=== PATIENT | male | born 1955 | race Caucasian/White ===

== ENCOUNTER → 2020-07-16 | Outpatient (CLI) | payer MEDICARE, OTHER ==
[~2020-07-16] MED LIST: SIMV20TA19 PO
[2020-07-16 11:01] LABS: BASOPHILS % (AUTO) 0 % (0-1); EOSINOPHILS % (AUTO) 1 % (1-7); LYMPHOCYTES % (AUTO) 29 % (22-44); MEAN CORPUSCULAR HEMOGLOBIN 30.4 pg (27.5-34.5); MEAN CORPUSCULAR HGB CONC 33.4 g/dL (33.2-36.2); MEAN PLATELET VOLUME 8.3 fL (7.4-10.4); MONOCYTES % (AUTO) 8 % (2-9); NEUTROPHILS % (AUTO) 62 % (42-75); PLATELET COUNT 169 x10^3/uL (130-400); RED BLOOD COUNT 4.96 x10^6/uL (4.38-5.82); RED CELL DISTRIBUTION WIDTH 12.8 % (9.4-14.8)
[2020-07-16 11:04] LABS: ANION GAP 5 mmol/L (5-15); CALCIUM 9.1 mg/dL (8.5-10.1); CHLORIDE 109 mmol/L (98-107)
[2020-07-16 11:07] LABS: MD NO
== END | disposition home or self-care (01) ==
LOC: STAR 09:09
PROVIDERS: ATTEND Orthopaedic Surgery
DX: Z01.810 Encounter for preprocedural cardiovascular examination (principal); Z01.818 Encounter for other preprocedural examination; M17.11 Unilateral primary osteoarthritis, right knee; Z20.828 Contact with and (suspected) exposure to other viral communicable diseases
CPT/HCPCS: 36415; 80048; 85025; 87081; 87635; 93005

== ENCOUNTER 2020-07-21 12:04 | Observation (INO) | payer OTHER, MEDICARE ==
[~2020-07-21] VITALS: Ht 180.3 cm; Wt 80.3 kg
[~2020-07-21 12:04] MED LIST changes: +EPINEPHRINE 1 MG/ML, 1ML ONE; +KETOROLAC 60 MG/2 ML ONE; +ROPIvacaine/PF 0.2%, 20 ML ONE; +SODIUM CHLORIDE 0.9% 50 ML ONE; +TRANEXAMIC ACID 100 MG/ML, 10ML ONE
[2020-07-21] MEDS ORDERED: CHLORHEXIDINE 15 ML UDC MM STA (12:15)
[2020-07-21] MEDS ORDERED: CHLORHEXIDINE 15 ML UDC ONE (12:22)
[2020-07-21] MEDS ORDERED: LACTATED RINGERS 1,000 ML IV SCH (12:30)
[2020-07-21] MEDS ORDERED: KETOROLAC 60 MG/2 ML ONE (13:18)
[2020-07-21] MEDS ORDERED: FENTANYL PF 250 MCG/5ML ONE (13:31)
[2020-07-21] MEDS ORDERED: PROPOFOL 50 ML ONE (14:47)
[2020-07-21] MEDS ORDERED: hydrALAzine 20 MG/ML, 1ML IV PRN (15:30)
[2020-07-21] MEDS ORDERED: ONDANSETRON 2MG/ML, 2ML IVPush PRN ×2 (15:30→16:30)
[2020-07-21] MEDS ORDERED: PROMETHAZINE 25 MG/ML, 1ML IVPush PRN (15:30)
[2020-07-21] MEDS ORDERED: FENTANYL PF 100 MCG/2ML IV PRN (15:30)
[2020-07-21] MEDS ORDERED: HALOPERIDOL 5 MG/ML IV PRN (15:30)
[2020-07-21] MEDS ORDERED: MEPERIDINE/PF 25MG/0.5ML IVPush PRN (15:30)
[2020-07-21] MEDS ORDERED: EPHEDRINE 50 MG/ML, 1ML IVPush PRN (15:30)
[2020-07-21] MEDS ORDERED: METHOCARBAMOL 1,000 MG in DEXTROSE 5% 100 ML IV PRN (15:30)
[2020-07-21] MEDS ORDERED: LABETALOL 5MG/ML, 20ML IV PRN (15:30)
[2020-07-21] MEDS ORDERED: LORazepam 2 MG/ML, 1ML IVPush PRN (15:30)
[2020-07-21] MEDS ORDERED: HYDROmorphone 1 MG/ML, 1ML INJ IVPush PRN ×2 (15:30→16:30)
[2020-07-21] MEDS ORDERED: ACETAMINOPHEN 325 MG TABLET PO PRN (15:30)
[2020-07-21] MEDS ORDERED: OXYcodone 5 MG/5 ML ORAL.SOL UDC PO PRN (15:30)
[2020-07-21] MEDS ORDERED: CEFAZOLIN PMX 1GM/50ML 50 ML IVPB SCH (16:30)
[2020-07-21] MEDS ORDERED: PROMETHAZINE 25 MG/ML, 1ML IM PRN (16:30)
[2020-07-21] MEDS ORDERED: PSYLLIUM PACKET PO PRN (16:30)
[2020-07-21] MEDS ORDERED: ALUMINUM/MAG/SIMETHICONE 30 ML UDC PO PRN (16:30)
[2020-07-21] MEDS ORDERED: MAGNESIUM HYDROXIDE 8%, 30ML UDC PO PRN (16:30)
[2020-07-21] MEDS ORDERED: DIPHENHYDRAMINE 50 MG CAPSULE PO PRN (16:30)
[2020-07-21] MEDS ORDERED: DIPHENHYDRAMINE 50 MG/ML, 1ML IVPush PRN (16:30)
[2020-07-21] MEDS ORDERED: POLYETHYLENE GLYCOL 17 GM PACKET PO PRN (16:30)
[2020-07-21] MEDS ORDERED: PROMETHAZINE 12.5 MG SUPP PR PRN (16:30)
[2020-07-21] MEDS ORDERED: SENNA/DOCUSATE TABLET PO PRN (16:30)
[2020-07-21] MEDS ORDERED: OXYcodone IR 5MG TABLET PO PRN ×2 (16:30)
[2020-07-21] MEDS ORDERED: BISACODYL 10 MG SUPP PR PRN (16:30)
[2020-07-21] MEDS ORDERED: ONDANSETRON 4 MG TABLET PO PRN (16:30)
[2020-07-21] MEDS ORDERED: OXYcodone 5 MG/5 ML ORAL.SOL UDC ONE (16:44)
[2020-07-21] MEDS ORDERED: ACETAMINOPHEN 650 MG/20.3 ML UDC ONE (16:44)
[2020-07-21] MEDS ORDERED: TRANEXAMIC ACID 1,000 MG in SODIUM CHLORIDE 0.9% 100 ML IVPB ONE (17:00)
[2020-07-21] MEDS: ACETAMINOPHEN 500 MG TABLET PO SCH (18:04)
[2020-07-21] MEDS: SODIUM CHLORIDE 0.9% 1,000 ML IV SCH (18:04)
[2020-07-21] MEDS: KETOROLAC 30 MG/1 ML IV SCH (18:05)
[2020-07-21] MEDS ORDERED: DIAZEPAM 5 MG TABLET PO PRN (18:30)
[2020-07-21 20:18] VITALS: BP 126/71
[2020-07-21] MEDS ORDERED: SIMVASTATIN 20 MG TABLET PO SCH (21:00)
[2020-07-21] MEDS: DOCUSATE 100 MG CAPSULE PO SCH (22:31)
[2020-07-21 23:23] VITALS: BP 127/78
[2020-07-22] MEDS: ACETAMINOPHEN 500 MG TABLET PO SCH ×2 (00:14→06:52)
[2020-07-22] MEDS: CEFAZOLIN PMX 1GM/50ML 50 ML IVPB SCH ×2 (00:14→08:52)
[2020-07-22] MEDS: KETOROLAC 30 MG/1 ML IV SCH ×2 (02:13→08:52)
[2020-07-22 05:05] VITALS: BP 96/56
[2020-07-22] MEDS: SODIUM CHLORIDE 0.9% 1,000 ML IV SCH (05:50)
[2020-07-22] MEDS ORDERED: ASPIRIN 81 MG TABLET EC PO SCH (06:00)
[2020-07-22] MEDS ORDERED: DEXAMETHASONE 4 MG/ML, 1ML IVPush ONE (06:00)
[2020-07-22 07:14] VITALS: BP 118/76
[2020-07-22] MEDS ORDERED: TAMSULOSIN 0.4 MG CAP.ER.24H PO ONE (08:00)
[2020-07-22] MEDS: DOCUSATE 100 MG CAPSULE PO SCH (08:52)
[2020-07-22] MEDS ORDERED: ONDANSETRON 2MG/ML, 2ML ONE (14:34)
[2020-07-22] MEDS ORDERED: ROCURONIUM 10 MG/ML,10ML ONE (14:34)
[2020-07-22] MEDS ORDERED: SUCCINYLCHOLINE 20 MG/ML, 10ML ONE (14:34)
[2020-07-22] MEDS ORDERED: NEOSTIGMINE 1 MG/ML, 10ML ONE (14:34)
[2020-07-22] MEDS ORDERED: GLYCOPYRROLATE 0.2MG/1ML, 5ML ONE (14:34)
[2020-07-22] MEDS ORDERED: CEFAZOLIN 1,000 MG ONE (14:34)
[2020-07-22] MEDS ORDERED: DEXAMETHASONE 4 MG/ML, 1ML ONE (14:34)
== END 2020-07-22 11:06 | disposition home or self-care (01) ==
LOC: OUT 12:04 → ORIP 16:14 → OUT 16:14 → 4NE 17:24 → DCLOUNGE 07-22 10:59
PROVIDERS: ADMIT Orthopaedic Surgery; ATTEND Orthopaedic Surgery
DX: M17.11 Unilateral primary osteoarthritis, right knee (principal); Z96.651 Presence of right artificial knee joint; Z79.899 Other long term (current) drug therapy
CPT/HCPCS: 27447; 36415; 73560; 85014; 85018; 96361; 96365; 96366; 96375; 96376; 97110; 97161; C1713; C1776; G0378; J0171; J0330; J0690; J1100; J1885; J2405; J2704; J2710; J2795; J3010; J7030; J7120